=== PATIENT | male | born 1950 | race Caucasian/White ===

== ENCOUNTER 2023-11-05 13:15 | Outpatient (CLI) | payer MEDICARE | END 2023-11-05 23:59 | disposition critical access hospital (66) | LOC: EMS 13:15 | DX: I48.91 Unspecified atrial fibrillation (principal) | CPT/HCPCS: A0425; A0429 ==

== ENCOUNTER 2023-11-05 13:43 | Emergency (ER) | payer MEDICARE, OTHER ==
--- NOTE | 2023-11-05 14:13 | ED Physician Documentation ---
History of Present Illness - Stated complaint Stated Complaint: AFIB - Chief complaint Chief Complaint: Cardiac - History obtained from History obtained from: Patient - Additonal information Additional information: 73-year-old male presents by EMS from home for palpitations. Patient has history of atrial fibrillation and per medical record review is on Pradaxa and metoprolol. Patient had heart rate between 80 and 120 bpm en route with EMS. On arrival patient continues to endorse occasional palpitations. He states that he is only taking half of his dose of Pradaxa out of "stubbornness". He takes his daily metoprolol as prescribed. Denies any new medication changes. Denies chest pain or shortness of breath. Review of Systems Constitutional: denies: Fever, Chills Cardiac: reports: Palpitations. denies: Chest pain / pressure, Calf pain Respiratory: denies: Dyspnea, Cough, Wheezing : denies: Dysuria, Frequency, Hesitancy Neurologic: denies: Generalized weakness, Focal weakness, Numbness PD PAST MEDICAL HISTORY - Past Medical History Past Medical History: Yes Cardiovascular: High cholesterol, Atrial fibrillation Respiratory: None Neuro: None Endocrine/Autoimmune: None GI: GERD : None HEENT: None Psych: None Derm: None - Past Surgical History Past Surgical History: Yes Ortho: Spine surgery Cardiovascular: Other Derm: Skin cancer surgery - Present Medications Home Medications: Ambulatory Orders Medication Instructions Recorded Confirmed Atorvastatin Calcium 40 mg PO DAILY 11/05/23 11/05/23 Dabigatran Etexilate Mesylate 150 mg ORAL BID 11/05/23 11/05/23 [Pradaxa] Ezetimibe [Zetia] 10 mg PO DAILY 11/05/23 11/05/23 Metoprolol Succinate [Toprol Xl] 25 mg PO DAILY 11/05/23 11/05/23 Omeprazole 40 mg PO DAILY 11/05/23 11/05/23 hydroCHLOROthiazide [Hydrodiuril] 25 mg PO DAILY 11/05/23 11/05/23 - Allergies Allergies/Adverse Reactions: Allergies Allergy/AdvReac Type Severity Reaction Status Date / Time No Known Drug Allergies Allergy Verified 11/05/23 13:53 - Social History Does the pt smoke?: No Smoking Status: Never smoker Does the pt drink ETOH?: No Does the pt have substance abuse?: No - Immunizations Immunizations are current?: Yes - POLST Patient has POLST: No PD ED PE NORMAL - Vitals Vital signs reviewed: Yes - General General: Alert and oriented X 3, No acute distress, Well developed/nourished - Cardiac Cardiac: Strong equal pulses, Other (Irregularly irregular rhythm) - Respiratory Respiratory: No respiratory distress, Clear bilaterally - Abdomen Abdomen: Soft, Non tender, Non distended - Derm Derm: Normal color, Warm and dry, No rash - Extremities Extremities: No deformity, No tenderness to palpate, Normal ROM s pain, No edema - Neuro Neuro: Alert and oriented X 3, 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9 Chloride 103 Carbon Dioxide 29 Anion Gap 5.0 L BUN 18 Creatinine 0.9 Estimated GFR (MDRD) 83 L Glucose 130 H Calcium 9.6 Total Bilirubin 2.2 H AST 17 ALT 35 Alkaline Phosphatase 63 Troponin I High Sens Total Protein 6.8 Albumin 4.2 Globulin 2.6 Albumin/Globulin Ratio 1.6 11/05/23 14:20 WBC RBC Hgb Hct MCV MCH MCHC RDW Plt Count MPV Neut # (Auto) Lymph # (Auto) [place] # (Auto) Eos # (Auto) Baso # (Auto) Absolute Nucleated RBC Nucleated RBC % PT INR Sodium Potassium Chloride Carbon Dioxide Anion Gap BUN Creatinine Estimated GFR (MDRD) Glucose Calcium Total Bilirubin AST ALT Alkaline Phosphatase Troponin I High Sens 3.1 Total Protein Albumin Globulin Albumin/Globulin Ratio PD Medical Decision Making - ED course Complexity details: reviewed results, re-evaluated patient, considered differential, d/w patient ED course: Atrial fibrillation. Patient is uncertain if he is normally in sinus rhythm or if he is always in atrial fibrillation. He did not know the name of his cardiac medications at the top of his head, but record review shows that he is on metoprolol. Patient not a candidate for cardioversion since he has been noncompliant with his Pradaxa. Laboratory work and imaging reviewed, no acute findings. Patient has been remained in rate controlled atrial fibrillation throughout stay in department. Patient counseled on the importance of taking his Pradaxa as prescribed in order to prevent strokes. Recommended continuing on his same dose of metoprolol. Cardiology follow-up advised. Departure - Departure Disposition: 01 Home, Self Care Clinical Impression: Atrial fibrillation Qualifiers: Atrial fibrillation type: unspecified Qualified Code(s): I48.91 - Unspecified atrial fibrillation Condition: Stable Instructions: Atrial Fibrillation Dc Comments: Continue to take all of your medications including your metoprolol as prescribed. I would encourage you to take your prescribed dose of Pradaxa because it will help keep your blood thinner and prevent you from getting strokes. Follow-up with your heart doctor. Your laboratory work and x-ray imaging today was normal. Forms: PCP List Discharge Date/Time: 11/05/23 16:08
[2023-11-05 14:31] LABS: BASOPHILS % (AUTO) 0.3 %; EOSINOPHILS % (AUTO) 0.3 %; HCT - HEMATOCRIT 44.8 % (42.0-52.0); HGB - HEMOGLOBIN 15.2 g/dL (14.0-18.0); LYMPHOCYTES # (AUTO) 1.5 10^3/uL (1.5-3.5); LYMPHOCYTES % (AUTO) 21.3 %; MEAN CORPUSCULAR HEMOGLOBIN 31.6 pg (27.0-31.0); MEAN CORPUSCULAR HGB CONC 33.9 g/dL (32.0-36.0); MEAN CORPUSCULAR VOLUME 93.1 fL (80.0-94.0); MEAN PLATELET VOLUME 9.2 fL (7.4-11.4); MONOCYTES # (AUTO) 0.5 10^3/uL (0.0-1.0); MONOCYTES % (AUTO) 6.6 %; NEUTROPHILS % (AUTO) 70.9 %; PLT - PLATELET COUNT 210 10^3/uL (130-450); RED BLOOD COUNT 4.81 10^6/uL (4.70-6.10); RED CELL DISTRIBUTION WIDTH 12.4 % (12.0-15.0)
--- NOTE | 2023-11-05 14:34 | XRAY Report ---
PROCEDURE: Chest 1V INDICATIONS: palpitations TECHNIQUE: One view of the chest was acquired. COMPARISON: None. FINDINGS: Surgical changes and devices: None. Lungs and pleura: No pleural effusions or pneumothorax. Lungs are clear. Mediastinum: Mediastinal contours appear normal. Heart size is normal. Bones and chest wall: No suspicious bony lesions. Overlying soft tissues appear unremarkable. IMPRESSION: No acute cardiopulmonary process. Reviewed by: Saul Sweet MD on 11/05/2023 2:33 PM PDT Approved by: Saul Sweet MD on 11/05/2023 2:33 PM PDT Station ID: [id number]
[2023-11-05 14:40] LABS: INR 1.3 (0.8-1.2); PT - PROTHROMBIN TIME 13.9 secs (9.9-12.6)
[2023-11-05 14:44] LABS: ALBUMIN 4.2 g/dL (3.2-5.5); ALBUMIN/GLOBULIN RATIO 1.6 (1.0-2.2); BILIRUBIN,TOTAL 2.2 mg/dL (0.2-1.0); CALCIUM 9.6 mg/dL (8.5-10.3); CREATININE 0.9 mg/dL (0.6-1.3); POTASSIUM 3.9 mmol/L (3.5-4.5); TOTAL PROTEIN 6.8 g/dL (6.4-8.9)
[2023-11-05 16:12] VITALS: BP 116/65; O2SAT 97
== END 2023-11-05 16:08 | disposition home or self-care (01) ==
LOC: ED 13:43
DX: I48.91 Unspecified atrial fibrillation (principal); Z79.02 Long term (current) use of antithrombotics/antiplatelets; E78.00 Pure hypercholesterolemia, unspecified; Z79.899 Other long term (current) drug therapy
CPT/HCPCS: 36415; 80053; 84484; 85025; 85610; 93005; 99284